=== PATIENT | female | born 1970 | race Two or more races ===

== ENCOUNTER 2017-11-10 17:20 | Emergency (ER) | payer OTHER ==
[~2017-11-10] VITALS: Ht 167.6 cm; Wt 81.2 kg
[2017-11-10 17:46] VITALS: BP 130/72
[2017-11-10] MEDS ORDERED: HYDROcodone-ACET 10/325MG TAB PO ONE (19:45)
== END 2017-11-10 20:32 | disposition home or self-care (01) ==
LOC: ER 17:30
DX: S66.912A Strain of unspecified muscle, fascia and tendon at wrist and hand level, left hand, initial encounter (principal); M62.838 Other muscle spasm; W01.0XXA Fall on same level from slipping, tripping and stumbling without subsequent striking against object, initial encounter; Y93.89 Activity, other specified; Y99.8 Other external cause status; Y92.89 Other specified places as the place of occurrence of the external cause
CPT/HCPCS: 72040; 73030; 73080; 73110